=== PATIENT | female | born 1940 | race Caucasian/White ===

== ENCOUNTER 2019-07-04 11:04 | Inpatient (IN) | payer MEDICARE, BC ==
[2019-07-04] MEDS ORDERED: SODIUM CHLORIDE 0.9% 1,000 ML IV STA (11:23)
[2019-07-04] MEDS ORDERED: DILTIAZEM DRIP BOLUS FROM BAG 1 MG SOLN IV ONE (11:23)
[2019-07-04] MEDS: DILTIAZEM 125 MG in SODIUM CHLORIDE 0.9% 100 ML IV SCH (11:43)
--- NOTE | 2019-07-04 11:47 | ED ---
General Adult HPI - General Chief complaint: Arrhythmia/Palpitations Stated complaint: High BP Time Seen by Provider: 07/04/19 11:16 Source: patient, RN notes reviewed, old records reviewed Mode of arrival: ambulatory Limitations: no limitations - History of Present Illness Initial comments: 78-year-old female presenting for evaluation of palpitations, , diarrhea, and poor appetite. No nausea vomiting. No chest pain. No dyspnea. No fever. She states her symptoms began last night. Should 2 episodes of diarrhea. She has history of CAD, no history of arrhythmia. She is currently on aspirin and Plavix. No history of illicit drug use, she states she did not eat or drink well yesterday because she was not feeling well. - Related Data Allergies Allergy/AdvReac Type Severity Reaction Status Date / Time acetaminophen [From Percocet] Allergy tremors Verified 07/04/19 11:12 ampicillin Allergy Unknown Verified 07/04/19 11:12 Childhood oxycodone [From Percocet] Allergy tremors Verified 07/04/19 11:12 Penicillins Allergy Unknown Verified 07/04/19 11:12 Childhood indomethacin [From Indocin] AdvReac Nausea Verified 07/04/19 11:12 isosorbide [From Imdur] AdvReac Nausea Verified 07/04/19 11:12 NSAIDS (Non-Steroidal AdvReac Nausea Verified 07/04/19 11:12 Anti-Inflamma omeprazole [From Prilosec] AdvReac Abdominal Verified 07/04/19 11:12 Pain ticlopidine [From Ticlid] AdvReac Nausea Verified 07/04/19 11:12 Review of Systems ROS Statement: Those systems with pertinent positive or pertinent negative responses have been documented in the HPI. ROS Other: All systems not noted in ROS Statement are negative. Past Medical History Past Medical History: Chest Pain / Angina, Hyperlipidemia, Myocardial Infarction ([place]) History of Any Multi-Drug Resistant Organisms: None Reported Past Surgical History: Cholecystectomy, Heart Catheterization With Stent, Hysterectomy Additional Past Surgical History / Comment(s): cystocele, rectocele, bladder suspension, urtheral vag sling, anterior/posterior colporhaphy, rt total knee Past Psychological History: No Psychological Hx Reported Smoking Status: Never smoker Past Alcohol Use History: None Reported Past Drug Use History: None Reported General Exam Limitations: no limitations General appearance: alert, in no apparent distress Head exam: Present: atraumatic, normocephalic Eye exam: Present: normal appearance, PERRL ENT exam: Present: mucous membranes dry Neck exam: Present: normal inspection. Absent: tenderness, meningismus Respiratory exam: Present: normal lung sounds bilaterally. Absent: respiratory distress, wheezes Cardiovascular Exam: Present: normal rhythm, tachycardia GI/Abdominal exam: Present: soft. Absent: distended, tenderness, guarding Extremities exam: Present: normal inspection, normal capillary refill. Absent: pedal edema, calf tenderness Back exam: Present: normal inspection, full ROM Neurological exam: Present: alert, oriented X3, CN II-XII intact. Absent: motor sensory deficit Psychiatric exam: Present: normal affect, normal mood Skin exam: Present: warm, dry, intact. 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 fib with RVR rate in the 150s. Initially appears to be a flutter with 21 AV conduction. Rate is significantly improved in the emergency department with Cardizem. She has a [id number] sclera 4, she is started on heparin. She has stable hemoglobin is 16, mild leukocytosis 12.2, normal electrolytes, initial troponin 0.034. Chest x-ray negative for acute cardiopulmonary disease. She will be admitted to internal medicine with cardiology on consult. - Lab Data Result diagrams: 07/04/19 11:30 07/04/19 11:30 Lab Results 07/04/19 07/04/19 07/04/19 Range/Units 11:20 11:20 11:30 WBC 12.2 H (3.8-10.6) k/uL RBC 5.30 (3.80-5.40) m/uL Hgb 16.0 (11.4-16.0) gm/dL Hct 49.4 H (34.0-46.0) % MCV 93.3 (80.0-100.0) fL MCH 30.3 (25.0-35.0) pg MCHC 32.5 (31.0-37.0) g/dL RDW 12.7 (11.5-15.5) % Plt Count 305 (150-450) k/uL Neutrophils % 80 % Lymphocytes % 13 % Monocytes % 5 % Eosinophils % 0 % Basophils % 0 % Neutrophils # 9.8 H (1.3-7.7) k/uL Lymphocytes # 1.6 (1.0-4.8) k/uL Monocytes # 0.6 (0-1.0) k/uL Eosinophils # 0.0 (0-0.7) k/uL Basophils # 0.1 (0-0.2) k/uL PT (9.0-12.0) sec INR (<1.2) APTT (22.0-30.0) sec Sodium (137-145) mmol/L Potassium (3.5-5.1) mmol/L Chloride (98-107) mmol/L Carbon Dioxide (22-30) mmol/L Anion Gap mmol/L BUN (7-17) mg/dL Creatinine (0.52-1.04) mg/dL Est GFR (CKD-EPI)AfAm (>60 ml/min/1.73 sqM) Est GFR (CKD-EPI)NonAf (>60 ml/min/1.73 sqM) Glucose (74-99) mg/dL Calcium (8.4-10.2) mg/dL Magnesium (1.6-2.3) mg/dL Total Bilirubin (0.2-1.3) mg/dL AST (14-36) U/L ALT (4-34) U/L Alkaline Phosphatase (38-126) U/L Troponin I (0.000-0.034) ng/mL Total Protein (6.3-8.2) g/dL Albumin (3.5-5.0) g/dL TSH (0.465-4.680) mIU/L Urine Color Colorless Urine Appearance Clear (Clear) Urine pH 6.5 (5.0-8.0) Ur Specific Brandon 1.004 (1.001-1.035) Urine Protein Negative (Negative) Urine Glucose (UA) Negative (Negative) Urine Ketones Negative (Negative) Urine Blood Negative (Negative) Urine Nitrite Negative (Negative) Urine Bilirubin Negative (Negative) Urine Urobilinogen <2.0 (<2.0) mg/dL Ur Leukocyte Esterase Negative (Negative) Coronavirus (PCR) Not Detected (Not Detectd) 07/04/19 07/04/19 07/04/19 Range/Units 11:30 11:30 11:30 WBC (3.8-10.6) k/uL RBC (3.80-5.40) m/uL Hgb (11.4-16.0) gm/dL Hct (34.0-46.0) % MCV (80.0-100.0) fL MCH (25.0-35.0) pg MCHC (31.0-37.0) g/dL RDW (11.5-15.5) % Plt Count (150-450) k/uL Neutrophils % % Lymphocytes % % Monocytes % % Eosinophils % % Basophils % % Neutrophils # (1.3-7.7) k/uL Lymphocytes # (1.0-4.8) k/uL Monocytes # (0-1.0) k/uL Eosinophils # (0-0.7) k/uL Basophils # (0-0.2) k/uL PT 10.3 (9.0-12.0) sec INR 1.0 (<1.2) APTT 24.0 (22.0-30.0) sec Sodium 139 (137-145) mmol/L Potassium 4.5 (3.5-5.1) mmol/L Chloride 108 H (98-107) mmol/L Carbon Dioxide 20 L (22-30) mmol/L Anion Gap 11 mmol/L BUN 17 (7-17) mg/dL Creatinine 1.02 (0.52-1.04) mg/dL Est GFR (CKD-EPI)AfAm 61 (>60 ml/min/1.73 sqM) Est GFR (CKD-EPI)NonAf 53 (>60 ml/min/1.73 sqM) Glucose 138 H (74-99) mg/dL Calcium 9.9 (8.4-10.2) mg/dL Magnesium 2.0 (1.6-2.3) mg/dL Total Bilirubin 1.1 (0.2-1.3) mg/dL AST 37 H (14-36) U/L ALT 32 (4-34) U/L Alkaline Phosphatase 102 (38-126) U/L Troponin I 0.034 (0.000-0.034) ng/mL Total Protein 8.0 (6.3-8.2) g/dL Albumin 4.6 (3.5-5.0) g/dL TSH 1.150 (0.465-4.680) mIU/L Urine Color Urine Appearance (Clear) Urine pH (5.0-8.0) Ur Specific Brandon (1.001-1.035) Urine Protein (Negative) Urine Glucose (UA) (Negative) Urine Ketones (Negative) Urine Blood (Negative) Urine Nitrite (Negative) Urine Bilirubin (Negative) Urine Urobilinogen (<2.0) mg/dL Ur Leukocyte Esterase (Negative) Coronavirus (PCR) (Not Detectd) Critical Care Time Critical Care Time: Yes Total Critical Care Time: 35 Disposition Clinical Impression: New onset atrial fibrillation, Atrial fibrillation with RVR Disposition: ADMITTED IP TO THIS [facility] Condition: Stable Is patient prescribed a controlled substance at d/c from ED?: No Referrals: Marcy Farias MD [Primary Care Provider] - 1-2 days Decision to Admit Reason: Admit from EC Decision Date: 07/04/19 Decision Time: 13:08
[2019-07-04 11:48] LABS: Basophils # (A) 0.1 k/uL (0-0.2); Basophils % (A) 0 %; Eosinophils % (A) 0 %; HCT 49.4 % (34.0-46.0); Lymphocytes # (A) 1.6 k/uL (1.0-4.8); Lymphocytes % (A) 13 %; MCH 30.3 pg (25.0-35.0); MCHC 32.5 g/dL (31.0-37.0); MCV 93.3 fL (80.0-100.0); Mean Platelet Volume 8.9; Monocytes # (A) 0.6 k/uL (0-1.0); Monocytes % (A) 5 %; Neutrophils # (A) 9.8 k/uL (1.3-7.7); Neutrophils % (A) 80 %; Platelet Count 305 k/uL (150-450); RDW 12.7 % (11.5-15.5); WBC 12.2 k/uL (3.8-10.6)
[2019-07-04 11:52] LABS: Albumin 4.6 g/dL (3.5-5.0); Calcium 9.9 mg/dL (8.4-10.2); Potassium 4.5 mmol/L (3.5-5.1); Total Bilirubin 1.1 mg/dL (0.2-1.3)
[2019-07-04 11:55] LABS: Prothrombin Time 10.3 sec (9.0-12.0)
--- NOTE | 2019-07-04 11:58 | XR ---
EXAMINATION TYPE: XR chest 2V DATE OF EXAM: 07/04/2019 COMPARISON: None HISTORY: 78-year-old female dysrhythmia, chest pressure TECHNIQUE: PA and lateral views FINDINGS: The heart is normal size. At this regard calcifications. Biapical pleural-parenchymal scarring. Mild interstitial prominence of the chronic appearance. No consolidation or pleural effusion seen. IMPRESSION: Chronic appearing changes. No definite acute process.
[2019-07-04] MEDS ORDERED: HEPARIN SODIUM,PORCINE 5,000 UNIT/ML 1 ML VIAL IV PRN (12:10)
[2019-07-04] MEDS ORDERED: HEPARIN SODIUM,PORCINE 5,000 UNIT/ML 1 ML VIAL IV ONE (12:10)
[2019-07-04] MEDS ORDERED: HEPARIN SOD,PORK IN 0.45% NACL 25,000 UNIT in 0.45% NACL 1 250ML.BAG IV SCH (12:15)
[2019-07-04 12:40] LABS: Appearance,Urine Clear (Clear); Bilirubin,Urine Negative (Negative); Blood,Urine Negative (Negative); Color,Urine Colorless; Glucose,Urine (UA) Negative (Negative); Ketones,Urine Negative (Negative); Leukocyte Esterase,Urine Negative (Negative); Nitrite,Urine Negative (Negative); PH, Urine 6.5 (5.0-8.0); Protein,Urine Negative (Negative); Specific Gravity,Urine 1.004 (1.001-1.035); Urobilinogen,Urine <2.0 mg/dL (<2.0)
[2019-07-04] MEDS ORDERED: ASPIRIN 325 MG TAB PO STA (13:02)
[2019-07-04] MEDS ORDERED: NALOXONE 0.4 MG/ML 1 ML VIAL IV PRN ×2 (13:03→14:22)
[2019-07-04] MEDS: SODIUM CHLORIDE 0.9% 1,000 ML IV SCH (13:43)
--- NOTE | 2019-07-04 14:30 | P.HPIM ---
History of Present Illness H&P Date: 07/04/19 Chief Complaint: Palpitations 78-year-old female presenting for evaluation of palpitations, lethargy , as well as diarrhea and poor appetite. No nausea vomiting. No chest pain. No dyspnea. She states her symptoms began last night. Had 2 episodes of diarrhea yesterday and 1 today. She has history of CAD, has 5 stents. She is currently on aspirin and Plavix. No fevers or chills, no cough, no sick contacts. In the emergency department she was found to have atrial fibrillation with rapid ventricular response, she was started on heparin and diltiazem drip and was admitted to the hospital for further evaluation and management. Review of Systems Complete review of system performed, pertinent positives per HPI, otherwise negative Past Medical History Past Medical History: Chest Pain / Angina, Hyperlipidemia, Myocardial Infarction ([place]) History of Any Multi-Drug Resistant Organisms: None Reported Past Surgical History: Cholecystectomy, Heart Catheterization With Stent, Hysterectomy Additional Past Surgical History / Comment(s): cystocele, rectocele, bladder suspension, urtheral vag sling, anterior/posterior colporhaphy, rt total knee Past Psychological History: No Psychological Hx Reported Smoking Status: Never smoker Past Alcohol Use History: None Reported Past Drug Use History: None Reported Medications and Allergies Home Medications Medication Instructions Recorded Confirmed Type Acetaminophen/Diphenhydramine 1 tab PO HS 07/04/19 07/04/19 History [Tylenol PM 500-25mg] Aspirin [Adult Low Dose Aspirin EC] 81 mg PO DAILY 07/04/19 07/04/19 History Atorvastatin Calcium [Lipitor] 40 mg PO HS 07/04/19 07/04/19 History Clopidogrel [Plavix] 75 mg PO HS 07/04/19 07/04/19 History Diltiazem HCl [Diltiazem HCl 24Hr 240 mg PO DAILY 07/04/19 07/04/19 History ER (CD)] Docusate [Colace] 100 mg PO BID 07/04/19 07/04/19 History Enalapril Maleate [Vasotec] 20 mg PO BID 07/04/19 07/04/19 History Allergies Allergy/AdvReac Type Severity Reaction Status Date / Time ampicillin Allergy Unknown Verified 07/04/19 13:21 Childhood oxycodone [From Percocet] Allergy tremors Verified 07/04/19 13:21 Penicillins Allergy Unknown Verified 07/04/19 13:21 Childhood indomethacin [From Indocin] AdvReac Nausea Verified 07/04/19 13:21 isosorbide [From Imdur] AdvReac Nausea Verified 07/04/19 13:21 NSAIDS (Non-Steroidal AdvReac Nausea Verified 07/04/19 13:21 Anti-Inflamma omeprazole [From Prilosec] AdvReac Abdominal Verified 07/04/19 13:21 Pain ticlopidine [From Ticlid] AdvReac Nausea Verified 07/04/19 13:21 Physical Exam Vitals: Vital Signs Temp Pulse Pulse Resp BP Pulse Ox 07/04/19 11:30 115 H 18 153/112 97 07/04/19 11:25 152 H 07/04/19 11:19 154 H 21 07/04/19 11:04 98.5 F 156 H 18 127/77 97 Intake and Output 07/03/19 07/04/19 07/04/19 22:59 06:59 14:59 Other: Weight 87.543 kg Constitutional: No acute distress, conversant, pleasant Eyes:Anicteric sclerae, moist conjunctiva, no lid-lag, PERRLA, ENMT: Oropharynx clear, no erythema, exudates Neck: Supple, FROM, no masses, or JVD, No carotid bruits, No thyromegaly Lungs: Clear to auscultation, Clear to percussion, Normal respiratory effort, no accessory muscle use Cardiovascular: Tachycardic, irregularly irregular no murmurs, gallops, or rubs, No peripheral edema Abdominal: Soft, Nontender, no guarding, rebound or rigidity, Normoactive bowel sounds, No hepatomegaly, No splenomegaly, No palpable mass Skin: Normal temperature, tone, texture, turgor, no induration, No subcutaneous nodules, No rash, lesions, No ulcers Extremities: No digital cyanosis, No clubbing, Pedal pulses intact and symmetrical, Radial pulses intact and symmetrical, No calf tenderness Psychiatric: Alert and oriented to person, place and time, appropriate affect, intact judgement Neuro: Muscles Strength 5/5 in all 4 extremities, Sensation to light touch grossly present throughout, Cranial nerves II-XII grossly intact, no focal sensory deficits Results CBC & Chem 7: 07/04/19 11:30 07/04/19 11:30 Labs: Abnormal Lab Results - Last 24 Hours (Table) 07/04/19 07/04/19 Range/Units 11:30 11:30 WBC 12.2 H (3.8-10.6) k/uL Hct 49.4 H (34.0-46.0) % Neutrophils # 9.8 H (1.3-7.7) k/uL Chloride 108 H (98-107) mmol/L Carbon Dioxide 20 L (22-30) mmol/L Glucose 138 H (74-99) mg/dL AST 37 H (14-36) U/L Assessment and Plan Plan: New-onset atrial fibrillation Started on heparin drip and diltiazem drip in the emergency department Cardio consultation Monitor on telemetry Echo Currently hemodynamically stable History of coronary artery disease Cycle troponins Currently stable Resume aspirin and Plavix as well as beta mera Chronic Hyperlipidemia Stable resume statin Patient admitted to inpatient, expected length of stay more than 2 midnights
[2019-07-04] MEDS: CLOPIDOGREL 75 MG TAB PO SCH (22:01)
[2019-07-04] MEDS: LISINOPRIL 20 MG TAB PO SCH (22:01)
[2019-07-04] MEDS: ATORVASTATIN 40 MG TAB PO SCH (22:01)
[2019-07-05 06:53] LABS: Basophils # (A) 0.1 k/uL (0-0.2); Basophils % (A) 1 %; Eosinophils # (A) 0.1 k/uL (0-0.7); Eosinophils % (A) 1 %; HCT 46.4 % (34.0-46.0); HGB 14.8 gm/dL (11.4-16.0); Lymphocytes # (A) 2.1 k/uL (1.0-4.8); Lymphocytes % (A) 19 %; MCH 30.1 pg (25.0-35.0); MCV 94.3 fL (80.0-100.0); Mean Platelet Volume 8.8; Monocytes # (A) 0.7 k/uL (0-1.0); Monocytes % (A) 7 %; Neutrophils # (A) 7.7 k/uL (1.3-7.7); Neutrophils % (A) 71 %; Platelet Count 258 k/uL (150-450); RBC 4.92 m/uL (3.80-5.40); RDW 12.8 % (11.5-15.5); WBC 10.8 k/uL (3.8-10.6)
[2019-07-05 07:20] LABS: Albumin 3.9 g/dL (3.5-5.0); Calcium 8.9 mg/dL (8.4-10.2); Potassium 4.1 mmol/L (3.5-5.1); Total Bilirubin 0.8 mg/dL (0.2-1.3); Total Protein 7.1 g/dL (6.3-8.2)
--- NOTE | 2019-07-05 07:36 | CDI ---
Documentation Clarification Form Date: 07/05/2019 07:34:21 AM From: Margi Dominguez RN, CCDS Admit Date: 07/04/2019 01:03:00 PM Patient Name: Lori Reynoso Visit Number: [id number] ATTENTION: The Clinical Documentation Specialists (CDI) and [facility] Coding Staff appreciate your assistance in clarifying documentation. Please respond to the clarification below the line at the bottom and electronically sign. The CDI & [facility] Coding staff will review the response and follow-up if needed. Please note: Queries are made part of the Legal Health Record. If you have any questions, please contact the author of this message via ITS. Dr. Karel Gage Coronavirus status must be documented on all patients tested. Please review and provide documentation. Patient history/risk factors: CAD, [place] Clinical Indicators: CXR: "Chronic appearing changes. No definite acute process." 07/03 Coronavirus (PCR) negative 07/03-07/04 Labs: WBC 12.2/10.8 07/04/2019 1104 Vital Signs: temp 98.5, HR 156, RR 18, B/P 127/77, Spo2 97% RA Treatment: 1 L IVF 0.9%NS bolus In order to capture the severity of condition, please clarify if the above treatment/clinical indicators signify: COVID-19 ruled out Other, please specify (Last Form Revision: May 2019) COVID-19 ruled out MTDD
[2019-07-05] MEDS: LISINOPRIL 20 MG TAB PO SCH (08:14)
[2019-07-05] MEDS ORDERED: ASPIRIN 81 MG PO SCH (09:00)
--- NOTE | 2019-07-05 09:57 | ECHOF ---
Referral Reason:Atrial fibrillation MEASUREMENTS -------- HEIGHT: 165.1 cm WEIGHT: 86.2 kg BP: 134/75 RVIDd: 2.6 cm (< 3.3) IVSd: 1.1 cm (0.6 - 1.1) LVIDd: 4.0 cm (3.9 - 5.3) LVPWd: 1.1 cm (0.6 - 1.1) IVSs: 1.5 cm LVIDs: 2.7 cm LVPWs: 1.3 cm LA Diam: 3.1 cm (2.7 - 3.8) LAESV Index (A-L): 22.70 ml/m Ao Diam: 3.1 cm (2.0 - 3.7) AV Cusp: 1.9 cm (1.5 - 2.6) MV EXCURSION: 10.022 mm (> 18.000) MV EF SLOPE: 32 mm/s (70 - 150) EPSS: 0.7 cm MV E Trav: 1.32 m/s MV DecT: 166 ms MV A Trav: 0.55 m/s MV E/A Ratio: 2.39 FINDINGS -------- Sinus rhythm. This was a technically good study. The left ventricular size is normal. There is borderline concentric left ventricular hypertrophy. Overall left ventricular systolic function is normal with, an EF between 60 - 65 %. The right ventricle is normal in size. Normal LA size by volume 22+/-6 ml/m2. The right atrium is normal in size. Interatrial and interventricular septum intact. The aortic valve is trileaflet and appears structurally normal. Mild mitral annular calcification present. The tricuspid valve appears structurally normal. Trace/mild (physiologic) pulmonic regurgitation. The aortic root size is normal. Normal inferior vena cava with normal inspiratory collapse consistent with estimated right atrial pre ssure of 5 mmHg. There is no pericardial effusion. CONCLUSIONS -------- 1. Sinus rhythm. 2. This was a technically good study. 3. The left ventricular size is normal. 4. There is borderline concentric left ventricular hypertrophy. 5. Overall left ventricular systolic function is normal with, an EF between 60 - 65 %. 6. The right ventricle is normal in size. 7. Normal LA size by volume 22+/-6 ml/m2. 8. The right atrium is normal in size. 9. Interatrial and interventricular septum intact. 10. The aortic valve is trileaflet and appears structurally normal. 11. Mild mitral annular calcification present. 12. The tricuspid valve appears structurally normal. 13. Trace/mild (physiologic) pulmonic regurgitation. 14. The aortic root size is normal. 15. Normal inferior vena cava with normal inspiratory collapse consistent with estimated right atrial pressure of 5 mmHg. 16. There is no pericardial effusion. [employer]TER [employer]AGGAGE: Shasha Ruiz RDCS
--- NOTE | 2019-07-05 10:26 | P.CRDCN ---
History of Present Illness Consult date: 07/05/19 Requesting physician: Franky Fowler Chief complaint: Shortness of breath, palpitation History of present illness: This is a pleasant 78-year-old female with history of coronary artery disease and prior stent placements, the most recent stent was apparently performed approximately 5 years ago. 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 She has history also of hyperlipidemia, hypertension. She presented to the emergency room on this occasion with symptoms of moderate to severe shortness of breath, palpitations, diarrhea and exhaustion. Her chest x- ray on presentation here did not reveal any acute changes EKG showed what appeared to be in atrial flutter with a rapid ventricular response. This could also be an atrial tachycardia. Blood pressure 155/60 with a heart rate in the 80s this morning, it appears that the patient continues to be in atrial flutter, respirations 18, temperature 98.4, 98% on room air. White blood cell count 12.2, hemoglobin 16, lately count 305. Sodium 139, potassium 4.5, chloride 108, CO2 20, BUN 17 creatinine 1.0, magnesium 2.0. Troponin 0.034, 0.044, 0.055. TSH normal at 1.1, yancey virus not detected. Dr. Smalls did have a lengthy discussion with the patient about the need for anticoagulation for stroke prevention, he discussed possible ablation. Procedure down the road, and the importance of heart rate control. The patient does think that she was tried on one of the newer anticoagulants in the past but did not have appropriate financial coverage for that. We will however check to see if she has coverage for Eliquis is so we will initiate this. If the patient does not have coverage we will anticoagulate with Coumadin. We will discontinue her aspirin, continue with her Plavix, check an echocardiogram, check a TSH level. We will put the patient on 240 mg of Cardizem in the morning and 120 in the evening, discontinue the IV Cardizem drip in the evening. We will also decrease her lisinopril to 40 mg daily. Past Medical History Past Medical History: Chest Pain / Angina, Hyperlipidemia, Myocardial Infarction ([place]) Additional Past Medical History / Comment(s): chest pressure not p ain Last Myocardial Infarction Date:: 2013 History of Any Multi-Drug Resistant Organisms: None Reported Past Surgical History: Cholecystectomy, Heart Catheterization With Stent, Hysterectomy Additional Past Surgical History / Comment(s): cystocele, rectocele, bladder suspension, urtheral vag sling, anterior/posterior colporhaphy, rt total knee, 5 stents. Date of Last Stent Placement:: 2013 Past Psychological History: No Psychological Hx Reported Smoking Status: Never smoker Past Alcohol Use History: None Reported Past Drug Use History: None Reported - Past Family History Father Family Medical History: Congestive Heart Failure (CHF), Coronary Artery Disease (CAD), Hyperlipidemia, Myocardial Infarction ([place]) Mother Family Medical History: Hypertension, Renal Disease Medications and Allergies Home Medications Medication Instructions Recorded Confirmed Type Acetaminophen/Diphenhydramine 1 tab PO HS 07/04/19 07/04/19 History [Tylenol PM 500-25mg] Aspirin [Adult Low Dose Aspirin EC] 81 mg PO DAILY 07/04/19 07/04/19 History Atorvastatin Calcium [Lipitor] 40 mg PO HS 07/04/19 07/04/19 History Clopidogrel [Plavix] 75 mg PO HS 07/04/19 07/04/19 History Diltiazem HCl [Diltiazem HCl 24Hr 240 mg PO DAILY 07/04/19 07/04/19 History ER (CD)] Docusate [Colace] 100 mg PO BID 07/04/19 07/04/19 History Enalapril Maleate [Vasotec] 20 mg PO BID 07/04/19 07/04/19 History Allergies Allergy/AdvReac Type Severity Reaction Status Date / Time ampicillin Allergy Unknown Verified 07/04/19 13:21 Childhood oxycodone [From Percocet] Allergy tremors Verified 07/04/19 13:21 Penicillins Allergy Unknown Verified 07/04/19 13:21 Childhood indomethacin [From Indocin] AdvReac Nausea Verified 07/04/19 13:21 isosorbide [From Imdur] AdvReac Nausea Verified 07/04/19 13:21 NSAIDS (Non-Steroidal AdvReac Nausea Verified 07/04/19 13:21 Anti-Inflamma omeprazole [From Prilosec] AdvReac Abdominal Verified 07/04/19 13:21 Pain ticlopidine [From Ticlid] AdvReac Nausea Verified 07/04/19 13:21 Physical Exam Vitals: Vital Signs Temp Pulse Pulse Resp BP BP Pulse Ox 07/05/19 08:00 98.4 F 88 18 155/68 98 07/05/19 07:48 83 07/05/19 03:12 83 17 07/05/19 03:10 98.2 F 83 17 134/75 96 07/05/19 00:00 79 16 07/04/19 23:55 98.4 F 79 16 151/81 96 07/04/19 21:58 16 07/04/19 21:39 98.5 F 78 16 151/82 98 07/04/19 17:20 98.6 F 99 18 147/79 98 07/04/19 16:51 98.2 F 84 16 139/55 98 07/04/19 16:28 99 17 147/79 07/04/19 15:00 76 17 134/69 98 07/04/19 14:30 77 17 148/66 97 07/04/19 14:00 111 H 16 143/68 97 07/04/19 13:42 93 18 130/83 98 07/04/19 13:30 110 H 17 97 07/04/19 13:00 109 H 17 151/83 97 07/04/19 12:30 101 H 17 159/94 96 07/04/19 12:00 112 H 17 144/101 98 07/04/19 11:30 115 H 18 153/112 97 07/04/19 11:25 152 H 07/04/19 11:19 154 H 21 07/04/19 11:04 98.5 F 156 H 18 127/77 97 Intake and Output 07/04/19 07/05/19 07/05/19 22:59 06:59 14:59 Intake Total 63.04 80 250.405 Output Total 250 Balance 63.04 -170 250.405 Intake: Intake, IV Titration 63.04 80 130.405 Amount Heparin Sod,Pork in 0.45% 63.04 130.405 NaCl 25,000 unit In 0.45 % NaCl 1 250ml.bag @ 11.4 UNITS/KG/HR 9.98 mls/hr IV .Q24H [facility]O Rx#: [id number] Sodium Chloride 0.9% 1, 80 000 ml @ 20 mls/hr IV . Q24H EDGARDO Rx#:[id number] Oral 120 Output: Urine 250 Other: Voiding Method Toilet Toilet # Voids 1 Weight 87.543 kg 86.3 kg PHYSICAL EXAMINATION: GENERAL: 78-year-old female in no acute distress at the time of my examination HEENT: Head is atraumatic, normocephalic. Pupils equal, round. Sclera anicteric. Conjunctiva are clear. Mucous membranes of the mouth are moist. Neck is supple. There is no elevated jugular venous pressure. No carotid bruit is heard. HEART EXAMINATION: Heart S1-S2 irregularly irregular , no murmur or gallop heard CHEST EXAMINATION: Lungs are clear to auscultation and precussion. No chest wall tenderness is noted on palpation or with deep breathing. ABDOMEN: Soft, nontender. Bowel sounds are heard. No organomegaly noted. EXTREMITIES: 2+ peripheral pulses with no evidence of peripheral edema and no calf tenderness noted. NEUROLOGIC patient is awake, alert and oriented 3 . . Results 07/05/19 06:38 07/05/19 06:38 Cardiac Enzymes 07/04/19 07/04/19 07/04/19 Range/Units 11:30 11:30 18:11 AST 37 H (14-36) U/L Troponin I 0.034 0.044 H* (0.000-0.034) ng/mL 07/04/19 07/05/19 Range/Units 23:39 06:38 AST 31 (14-36) U/L Troponin I 0.055 H* (0.000-0.034) ng/mL Coagulation 07/04/19 07/04/19 07/05/19 Range/Units 11:30 18:11 06:38 PT 10.3 (9.0-12.0) sec APTT 24.0 55.3 H 33.4 H (22.0-30.0) sec CBC 07/04/19 07/05/19 Range/Units 11:30 06:38 WBC 12.2 H 10.8 H (3.8-10.6) k/uL RBC 5.30 4.92 (3.80-5.40) m/uL Hgb 16.0 14.8 (11.4-16.0) gm/dL Hct 49.4 H 46.4 H (34.0-46.0) % Plt Count 305 258 (150-450) k/uL Comprehensive Metabolic Panel 07/04/19 07/05/19 Range/Units 11:30 06:38 Sodium 139 139 (137-145) mmol/L Potassium 4.5 4.1 (3.5-5.1) mmol/L Chloride 108 H 109 H (98-107) mmol/L Carbon Dioxide 20 L 23 (22-30) mmol/L BUN 17 15 (7-17) mg/dL Creatinine 1.02 0.83 (0.52-1.04) mg/dL Glucose 138 H 118 H (74-99) mg/dL Calcium 9.9 8.9 (8.4-10.2) mg/dL AST 37 H 31 (14-36) U/L ALT 32 26 (4-34) U/L Alkaline Phosphatase 102 89 (38-126) U/L Total Protein 8.0 7.1 (6.3-8.2) g/dL Albumin 4.6 3.9 (3.5-5.0) g/dL Current Medications Generic Name Dose Route Start Last Admin Trade Name Freq PRN Reason Stop Dose Admin Atorvastatin Calcium 40 mg 07/04/19 21:00 07/04/19 22:01 Lipitor PO 40 mg HS EDGARDO Administration Clopidogrel Bisulfate 75 mg 07/04/19 21:00 07/04/19 22:01 Plavix PO 75 mg HS EDGARDO Administration Diltiazem HCl 240 mg 07/05/19 10:30 Cardizem Cd PO DAILY EDGARDO Diltiazem HCl 120 mg 07/05/19 20:00 Cardizem Cd PO DAILY EDGADRO Heparin Sodium (Porcine) 0 unit 07/04/19 12:10 Heparin IV PER PROTOCOL PRN Low PTT Protocol Diltiazem HCl 125 mg/ Sodium 125 mls @ 5 mls/hr 07/04/19 11:30 07/04/19 11:43 Chloride IV 07/05/19 20:00 5 mg/hr .Q24H EDGARDO 5 mls/hr Administration 5 MG/HR Heparin Sodium/Sodium Chloride 250 mls @ 9.98 mls/hr 07/04/19 12:15 07/05/19 08:18 25,000 unit/ Sodium Chloride IV 14.4 units/kg/hr .Q24H EDGARDO 12.606 mls/hr Titration Protocol 11.4 UNITS/KG/HR Sodium Chloride 1,000 mls @ 20 mls/hr 07/04/19 13:15 07/04/19 13:43 Saline 0.9% IV 20 mls/hr .Q24H EDGARDO Administration Lisinopril 40 mg 07/04/19 21:00 07/05/19 08:14 Zestril PO 40 mg BID EDGARDO Administration Naloxone HCl 0.2 mg 07/04/19 14:22 Narcan IV Q2M PRN Opioid Reversal Intake and Output 07/04/19 07/05/19 07/05/19 22:59 06:59 14:59 Intake Total 63.04 80 250.405 Output Total 250 Balance 63.04 -170 250.405 Intake: Intake, IV Titration 63.04 80 130.405 Amount Heparin Sod,Pork in 0.45% 63.04 130.405 NaCl 25,000 unit In 0.45 % NaCl 1 250ml.bag @ 11.4 UNITS/KG/HR 9.98 mls/hr IV .Q24H [facility]GARDO Rx#: [id number] Sodium Chloride 0.9% 1, 80 000 ml @ 20 mls/hr IV . Q24H [facility]O Rx#:[id number] Oral 120 Output: Urine 250 Other: Voiding Method Toilet Toilet # Voids 1 Weight 87.543 kg 86.3 kg 07/05/19 06:38 07/05/19 06:38 EKG Interpretations (text) EKG shows atrial flutter with a rapid ventricular response Assessment and Plan Plan: Assessment and plan #1 atrial flutter with rapid ventricular response, could also be an atrial tachycardia. #2 coronary artery disease history with prior stent placements, exact details unavailable. Most recent stent was 5 years ago. #3 hypertension #4 hyperlipidemia Plan We will discontinue the aspirin, continue Plavix, if the patient is covered we will start her on Eliquis 5 mg one tablet by mouth twice a day, if the patient does not have sufficient coverage we will initiate Coumadin from today. Check an echocardiogram with Doppler study as well as a TSH level. We will put the patient on 240 mg of Cardizem in the morning and 120 mg in the evening, d iscontinue the IV Cardizem drip in the evening. Decrease lisinopril to [address] Smalls also had a discussion with the patient regarding possible ablation procedure, and he discussed the importance of adequate rate control. Further recommendations to follow. DNP note has been reviewed, I agree with a documented findings and plan of care. Patient was seen and examined.
[2019-07-05] MEDS ORDERED: APIXABAN 5 MG TAB PO SCH (10:45)
[2019-07-05] MEDS: SODIUM CHLORIDE 0.9% 1,000 ML IV SCH (11:04)
[2019-07-05] MEDS: DILTIAZEM CD 240 MG CAP.ER.24H PO SCH (11:17)
[2019-07-05] MEDS: DILTIAZEM 125 MG in SODIUM CHLORIDE 0.9% 100 ML IV SCH (11:17)
--- NOTE | 2019-07-05 13:18 | P.PN ---
Subjective Progress Note Date: 07/05/19 Principal diagnosis: A-fib Patient is feeling better today. She was able to get up out of bed without significant weakness this morning. No significant shortness of breath or chest pain. Objective - Vital Signs Vital signs: Vital Signs Temp 98.4 F 07/05/19 08:00 Pulse 88 07/05/19 08:00 Resp 18 07/05/19 08:00 BP 155/68 07/05/19 08:00 Pulse Ox 98 07/05/19 08:00 Intake & Output 07/04/19 07/05/19 07/05/19 18:59 06:59 18:59 Intake Total 143.04 250.405 Output Total 250 Balance -106.96 250.405 Weight 87.543 kg 86.3 kg Intake: Intake, IV Titration 143.04 130.405 Amount Heparin Sod,Pork in 0.45% 63.04 130.405 NaCl 25,000 unit In 0.45 % NaCl 1 250ml.bag @ 11.4 UNITS/KG/HR 9.98 mls/hr IV .Q24H [facility]GARDO Rx#: [id number] Sodium Chloride 0.9% 1, 80 000 ml @ 20 mls/hr IV . Q24H EDGARDO Rx#:[id number] Oral 120 Output: Urine 250 Other: Voiding Method Toilet # Voids 1 - Exam Constitutional: No acute distress, conversant, pleasant Eyes:Anicteric sclerae, moist conjunctiva, no lid-lag, PERRLA, ENMT: Oropharynx clear, no erythema, exudates Neck: Supple, FROM, no masses, or JVD, No carotid bruits, No thyromegaly Lungs: Clear to auscultation, Clear to percussion, Normal respiratory effort, no accessory muscle use Cardiovascular: normal rate, irregularly irregular no murmurs, gallops, or rubs, No peripheral edema Abdominal: Soft, Nontender, no guarding, rebound or rigidity, Normoactive bowel sounds, No hepatomegaly, No splenomegaly, No palpable mass Skin: Normal temperature, tone, texture, turgor, no induration, No subcutaneous nodules, No rash, lesions, No ulcers Extremities: No digital cyanosis, No clubbing, Pedal pulses intact and symmetrical, Radial pulses intact and symmetrical, No calf tenderness Psychiatric: Alert and oriented to person, place and time, appropriate affect, intact judgement Neuro: Muscles Strength 5/5 in all 4 extremities, Sensation to light touch grossly present throughout, Cranial nerves II-XII grossly intact, no focal sensory deficits - Labs CBC & Chem 7: 07/05/19 06:38 07/05/19 06:38 Labs: Abnormal Lab Results - Last 24 Hours (Table) 07/04/19 07/04/19 07/04/19 Range/Units 11:30 11:30 18:11 WBC 12.2 H (3.8-10.6) k/uL Hct 49.4 H (34.0-46.0) % Neutrophils # 9.8 H (1.3-7.7) k/uL APTT 55.3 H (22.0-30.0) sec Chloride 108 H (98-107) mmol/L Carbon Dioxide 20 L (22-30) mmol/L Glucose 138 H (74-99) mg/dL AST 37 H (14-36) U/L Troponin I (0.000-0.034) ng/mL 07/04/19 07/04/19 07/05/19 Range/Units 18:11 23:39 06:38 WBC 10.8 H (3.8-10.6) k/uL Hct 46.4 H (34.0-46.0) % Neutrophils # (1.3-7.7) k/uL APTT (22.0-30.0) sec Chloride (98-107) mmol/L Carbon Dioxide (22-30) mmol/L Glucose (74-99) mg/dL AST (14-36) U/L Troponin I 0.044 H* 0.055 H* (0.000-0.034) ng/mL 07/05/19 07/05/19 Range/Units 06:38 06:38 WBC (3.8-10.6) k/uL Hct (34.0-46.0) % Neutrophils # (1.3-7.7) k/uL APTT 33.4 H (22.0-30.0) sec Chloride 109 H (98-107) mmol/L Carbon Dioxide (22-30) mmol/L Glucose 118 H (74-99) mg/dL AST (14-36) U/L Troponin I (0.000-0.034) ng/mL Assessment and Plan Plan: New-onset atrial fibrillation D/c heparin drip and start coumadin, new AC agents not covered by her insurance, verified by pharmacy. Seen by cardio Cardizem dose adjusted by cardio to 120mg qhs and 240 in am. Check TSH Continue to monitor on telemetry Echo Currently hemodynamically stable History of coronary artery disease Currently stable Resume aspirin and Plavix as well as beta mera Chronic Hyperlipidemia Stable resume statin Patient admitted to inpatient, expected length of stay more than 2 midnights
[2019-07-05] MEDS ORDERED: WARFARIN 2 MG TAB PO SCH (18:00)
[2019-07-05] MEDS ORDERED: DILTIAZEM CD 120 MG CAP.ER.24H PO SCH (20:00)
[2019-07-05] MEDS: ATORVASTATIN 40 MG TAB PO SCH (20:14)
[2019-07-05] MEDS: CLOPIDOGREL 75 MG TAB PO SCH (20:14)
[2019-07-05 22:53] VITALS: RESP 16
[2019-07-06 04:59] VITALS: TEMP 98.1
[2019-07-06 06:36] LABS: Basophils # (A) 0.1 k/uL (0-0.2); Basophils % (A) 1 %; Eosinophils # (A) 0.2 k/uL (0-0.7); Eosinophils % (A) 3 %; HGB 14.8 gm/dL (11.4-16.0); Lymphocytes # (A) 2.2 k/uL (1.0-4.8); Lymphocytes % (A) 26 %; MCH 30.4 pg (25.0-35.0); MCHC 32.1 g/dL (31.0-37.0); MCV 94.6 fL (80.0-100.0); Monocytes # (A) 0.7 k/uL (0-1.0); Monocytes % (A) 8 %; Neutrophils % (A) 61 %; Platelet Count 249 k/uL (150-450); RBC 4.86 m/uL (3.80-5.40); RDW 12.7 % (11.5-15.5); WBC 8.3 k/uL (3.8-10.6)
[2019-07-06] MEDS ORDERED: LISINOPRIL 20 MG TAB PO SCH (09:00)
[2019-07-06] MEDS: DILTIAZEM CD 240 MG CAP.ER.24H PO SCH (09:35)
[2019-07-06 10:23] VITALS: BP 153/80; PULSE 83
[2019-07-06 10:42] LABS: Prothrombin Time 10.3 sec (9.0-12.0)
--- NOTE | 2019-07-06 11:29 | P.DS ---
Providers Date of admission: 07/04/19 13:03 Expected date of discharge: 07/06/19 Attending physician: Franky Fowler MD Consults: 07/04/19 13:03 Consult Physician Routine Consulting Provider: Praneeth Smalls Consult Reason/Comments: New-onset atrial fibrillation with RVR Do you want consulting provider notified?: Yes Primary care physician: Marcy Farias [facility] Course: 78-year-old female presenting for evaluation of palpitations, lethargy , as well as diarrhea and poor appetite. No nausea vomiting. No chest pain. No dyspnea. She states her symptoms began last night. Had 2 episodes of diarrhea yesterday and 1 today. She has history of CAD, has 5 stents. She is currently on aspirin and Plavix. No fevers or chills, no cough, no sick contacts. In the emergency department she was found to have atrial fibrillation with rapid ventricular response, she was started on heparin and diltiazem drip and was admitted to the hospital for further evaluation and management. TSH was within normal limits. During the hospitalization her troponin bumped up slightly to 0.055 which was deemed nonspecific per cardiology. Patient had an echocardiogram that revealed normal ejection fraction. Patient was kept on heparin. She was seen by cardiology who added Cardizem 120 mg evening dose to the 240 mg she already takes in the morning. Her heart rate stabilized, the Cardizem drip was discontinued. Her insurance was not going to cover the newer anticoagulants so patient was started on Coumadin. Due to that aspirin will be dropped and she'll be continued on Plavix. Patient was instructed to follow-up with her primary care physician tomorrow in order to check on her INR. She will also need to follow with cardiology. Time for discharge 35 minutes. Patient Condition at Discharge: Stable Plan - Discharge Summary Discharge Rx Participant: Yes New Discharge Prescriptions: New Apixaban [Eliquis] 5 mg PO BID 30 Days #60 tab Diltiazem Cd [Cardizem CD] 120 mg PO DAILY@1999 90 Days #90 cap.er.24h Warfarin [Coumadin] 3 mg PO DAILY@1800 3 Days #3 tab Continue Docusate [Colace] 100 mg PO BID Acetaminophen/Diphenhydramine [Tylenol PM 500-25mg] 1 tab PO HS Enalapril Maleate [Vasotec] 20 mg PO BID Diltiazem HCl [Diltiazem HCl 24Hr ER (CD)] 240 mg PO DAILY Clopidogrel [Plavix] 75 mg PO HS Atorvastatin Calcium [Lipitor] 40 mg PO HS Discontinued Aspirin [Adult Low Dose Aspirin EC] 81 mg PO DAILY Discharge Medication List Acetaminophen/Diphenhydramine [Tylenol PM 500-25mg] 1 tab PO HS 07/04/19 [History] Atorvastatin Calcium [Lipitor] 40 mg PO HS 07/04/19 [History] Clopidogrel [Plavix] 75 mg PO HS 07/04/19 [History] Diltiazem HCl [Diltiazem HCl 24Hr ER (CD)] 240 mg PO DAILY 07/04/19 [History] Docusate [Colace] 100 mg PO BID 07/04/19 [History] Enalapril Maleate [Vasotec] 20 mg PO BID 07/04/19 [History] Apixaban [Eliquis] 5 mg PO BID 30 Days #60 tab 07/05/19 [Rx] Diltiazem Cd [Cardizem CD] 120 mg PO DAILY@2000 90 Days #90 cap.er.24h 07/06/19 [Rx] Warfarin [Coumadin] 3 mg PO DAILY@1800 3 Days #3 tab 07/06/19 [Rx] Follow up Appointment(s)/Referral(s): Praneeth Smalls MD [STAFF PHYSICIAN] - 1 Week Marcy Farias MD [Primary Care Provider] - 1-2 days Activity/Diet/Wound Care/Special Instructions: Eliquis filled at [facility] using free 30day coupon Follow up primary probate clerk and [employer] [facility] (Eliquis accounts receivable clerk) - - regarding patient assistance program application
--- NOTE | 2019-07-06 12:16 | P.PN ---
Subjective Progress Note Date: 07/06/19 This is a pleasant 78-year-old female with history of coronary artery disease and prior stent placements, the most recent stent was apparently performed approximately 5 years ago. 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 She has history also of hyperlipidemia, hypertension. She presented to the emergency room on this occasion with symptoms of moderate to severe shortness of breath, palpitations, diarrhea and exhaustion. Her chest x- ray on presentation here did not reveal any acute changes EKG showed what appeared to be in atrial flutter with a rapid ventricular response. This could also be an atrial tachycardia. Blood pressure 155/60 with a heart rate in the 80s this morning, it appears that the patient continues to be in atrial flutter, respirations 18, temperature 98.4, 98% on room air. White blood cell count 12.2, hemoglobin 16, lately count 305. Sodium 139, potassium 4.5, chloride 108, CO2 20, BUN 17 creatinine 1.0, magnesium 2.0. Troponin 0.034, 0.044, 0.055. T SH normal at 1.1, yancey virus not detected. Dr. Smalls did have a lengthy discussion with the patient about the need for anticoagulation for stroke prevention, he discussed possible ablation. Procedure down the road, and the importance of heart rate control. The patient does think that she was tried on one of the newer anticoagulants in the past but did not have appropriate financial coverage for that. We will however check to see if she has coverage for Eliquis is so we will initiate this. If the patient does not have coverage we will anticoagulate with Coumadin. We will discontinue her aspirin, continue with her Plavix, check an echocardiogram, check a TSH level. We will put the p atient on 240 mg of Cardizem in the morning and 120 in the evening, discontinue the IV Cardizem drip in the evening. We will also decrease her lisinopril to 40 mg daily. 07/06/2019 Patient was seen and examined this morning, it appears that she continues to be in an atrial flutter with a heart rate in the 70s this morning, echocardiogram with Doppler study was performed which revealed an ejection fraction of 60-65%. Patient was sitting up in her chair at the time of my examination. She feels well, denies any difficulty in breathing or palpitations.blood pressure 148/72 this morning, heart rate in the 70s, 97% on room air. Objective - Vital Signs Vital signs: Vital Signs Temp 98.1 F 07/06/19 04:00 Pulse 83 07/06/19 08:00 Resp 16 07/06/19 08:00 BP 153/80 07/06/19 08:00 Pulse Ox 96 07/06/19 08:00 Intake & Output 07/05/19 07/06/19 07/06/19 18:59 06:59 18:59 Intake Total 608.238 780 240 Output Total 100 Balance 508.238 780 240 Weight 86.8 kg Intake: Intake, IV Titration 248.238 Amount Diltiazem 125 mg In 117.833 Sodium Chloride 0.9% 100 ml @ 5 MG/HR 5 mls/hr IV .Q24H EDGARDO Rx#:[id number] Heparin Sod,Pork in 0.45% 130.405 NaCl 25,000 unit In 0.45 % NaCl 1 250ml.bag @ 11.4 UNITS/KG/HR 9.98 mls/hr IV .Q24H EDGARDO Rx#: [id number] Oral 360 780 240 Output: Urine 100 Other: # Voids 1 1 - Exam PHYSICAL EXAMINATION: GENERAL: 78-year-old female in no acute distress at the time of my examination HEENT: Head is atraumatic, normocephalic. Pupils equal, round. Sclera anicteric. Conjunctiva are clear. Mucous membranes of the mouth are moist. Neck is supple. There is no elevated jugular venous pressure. No carotid bruit is heard. HEART EXAMINATION: Heart S1-S2 irregularly irregular , no murmur or gallop heard CHEST EXAMINATION: Lungs are clear to auscultation and precussion. No chest wall tenderness is noted on palpation or with deep breathing. ABDOMEN: Soft, nontender. Bowel sounds are heard. No organomegaly noted. EXTREMITIES: 2+ peripheral pulses with no evidence of peripheral edema and no c juanita tenderness noted. NEUROLOGIC patient is awake, alert and oriented 3 . . - Labs CBC & Chem 7: 07/06/19 05:40 07/05/19 06:38 Assessment and Plan Plan: Assessment and plan #1 atrial flutter with rapid ventricular response, could also be an atrial tachycardia. #2 coronary artery disease history with prior stent placements, exact details unavailable. Most recent stent was 5 years ago. #3 hypertension #4 hyperlipidemia Plan From cardiology's perspective, patient may be able to be discharged home today. She will get a month free Eliquis, paperwork is also been forwarded to her insurance, she will meet criteria to be covered for Eliquis. We did start the patient on Eliquis yesterday, it seemed to have been discontinued and patient was given a dose of Coumadin. She much prefers to be on Eliquis which we will change her back over today and speak with the sound physician regarding this. She also used to follow with a senior water/wastewater engineer out of town and wishes to follow now with Dr. Briscoe. We will make her a follow-up appointment in the office post discharge. DNP note has been reviewed, I agree with a documented findings and plan of care. Patient was seen and examined.
[2019-07-06] MEDS ORDERED: APIXABAN 5 MG TAB PO SCH (21:00)
== END 2019-07-06 14:04 | disposition home or self-care (01) | DRG 310 ==
LOC: EC 11:04 → 3SCARD 13:03
PROVIDERS: ADMIT Internal Medicine; ATTEND Internal Medicine
DX: I48.91 Unspecified atrial fibrillation (principal); I48.92 Unspecified atrial flutter; E78.5 Hyperlipidemia, unspecified; I10 Essential (primary) hypertension; I25.10 Atherosclerotic heart disease of native coronary artery without angina pectoris; Z20.828 Contact with and (suspected) exposure to other viral communicable diseases; Z88.6 Allergy status to analgesic agent; Z88.5 Allergy status to narcotic agent; Z88.0 Allergy status to penicillin; Z88.8 Allergy status to other drugs, medicaments and biological substances; I25.2 Old myocardial infarction; Z90.49 Acquired absence of other specified parts of digestive tract; Z98.890 Other specified postprocedural states; Z95.5 Presence of coronary angioplasty implant and graft; Z90.710 Acquired absence of both cervix and uterus; Z79.82 Long term (current) use of aspirin; Z79.02 Long term (current) use of antithrombotics/antiplatelets; Z79.899 Other long term (current) drug therapy; Z82.49 Family history of ischemic heart disease and other diseases of the circulatory system; Z83.438 Family history of other disorder of lipoprotein metabolism and other lipidemia
CPT/HCPCS: 36415; 71046; 80053; 81003; 83735; 84443; 84484; 85025; 85610; 85730; 87635; 93005; 93306; 96365; 96366; 96368; 96376; 99291

== ENCOUNTER → 2020-05-15 | Outpatient (CLI) | payer MEDICARE, BC ==
--- NOTE | 2020-05-15 16:27 | US ---
EXAMINATION TYPE: US venous doppler duplex LE LT DATE OF EXAM: 05/15/2020 4:17 PM COMPARISON: NONE CLINICAL HISTORY: M25.562 Left Knee Pain, R22.42 Swelling. Medial left knee pain at site of superfici al varicosed veins. SIDE PERFORMED: Left TECHNIQUE: The lower extremity deep venous system is examined utilizing real time linear array sonog gordon with graded compression, doppler sonography and color-flow sonography. VESSELS IMAGED: Common Femoral Vein Deep Femoral Vein Greater Saphenous Vein * Femoral Vein Popliteal Vein Small Saphenous Vein * Proximal Calf Veins (* superficial vessels) Left Leg: Negative for DVT. Negative for SVT at medial left knee where tortuous and dilated superfic ial veins at noted at patient's area of pain. Grayscale, color doppler, spectral doppler imaging performed of the deep veins of the left lower extr emity. There is normal flow, compressibility, vascular waveforms. IMPRESSION: No ultrasound evidence for acute DVT in the left lower extremity. Towards the end of true dy there is tortuous but patent superficial vessel or varicose vein noted.
--- NOTE | 2020-05-16 12:25 | XR ---
Left knee HISTORY: Pain and swelling 5 views of the left knee Bone mineralization is reduced. There is no fracture or dislocation. Suprapatellar increased density suggests small effusion, there is spurring at the patellofemoral and medial aspect of the joint with some joint space loss. Alignment is maintained. Vascular calcifications are present in the soft tissu es. There is large serpiginous soft tissue increased attenuation present along the medial thigh and l eg likely due to varicosities. IMPRESSION: Osteoarthritis. Soft tissue varicosities.
== END | disposition home or self-care (01) ==
LOC: RADUSWWP 15:44
PROVIDERS: ATTEND Family Medicine
DX: M17.12 Unilateral primary osteoarthritis, left knee (principal); I86.8 Varicose veins of other specified sites; R22.42 Localized swelling, mass and lump, left lower limb

== ENCOUNTER 2020-05-28 19:52 | Emergency (ER) | payer MEDICARE, BC ==
--- NOTE | 2020-05-28 22:59 | US ---
EXAMINATION TYPE: US venous doppler duplex LE LT DATE OF EXAM: 05/28/2020 10:52 PM COMPARISON: US CLINICAL HISTORY: posterior knee pain. Posterior knee pain x 3.5 hours. No hx of DVT. Patient is on e liquis. SIDE PERFORMED: Left TECHNIQUE: The lower extremity deep venous system is examined utilizing real time linear array sonog gordon with graded compression, doppler sonography and color-flow sonography. VESSELS IMAGED: Common Femoral Vein Deep Femoral Vein Greater Saphenous Vein * Femoral Vein Popliteal Vein Small Saphenous Vein * Proximal Calf Veins (* superficial vessels) Left Leg: No evidence of DVT in veins imaged at this time from prox calf veins to CFV/GSV. IMPRESSION: No evidence of deep vein thrombosis in the left leg.
--- NOTE | 2020-05-28 23:01 | ED ---
General Adult HPI - General Chief complaint: Extremity Problem,Nontraumatic Stated complaint: Lft leg pain Time Seen by Provider: 05/28/20 21:28 Source: patient Mode of arrival: ambulatory Limitations: no limitations - History of Present Illness Initial comments: 79-year-old female presenting today for chief complaint of left posterior knee pain patient states that she has had left posterior knee pain for over 2 weeks. She states she had an ultrasound x-ray done approximately 10 days ago which revealed no acute abnormalities. Patient denies any leg swelling redness or decreased range of motion. She states it was starting to feel relatively better however when she was standing in the kitchen she felt a pop and painful sensation behind the left knee. Patient states she has no increased pain in comparison with that of earlier in the day. Patient denies any fevers chills general malaise she has a chest pain shortness of breath, history of DVT or pulmonary embolism patient states she is on eliquis for cardiovascular reasons. Patient has no additional complaints concerns, denies injuries or falls and is ambulatory on arrival. - Related Data Home Medications Medication Instructions Recorded Confirmed Atorvastatin Calcium [Lipitor] 40 mg PO HS 07/04/19 05/28/20 Clopidogrel [Plavix] 75 mg PO HS 07/04/19 05/28/20 Enalapril Maleate [Vasotec] 10 mg PO BID 07/04/19 05/28/20 Diltiazem Cd [Cardizem CD] 360 mg PO DAILY 05/28/20 05/28/20 Metoprolol Succinate (ER) [Toprol 50 mg PO HS 05/28/20 05/28/20 Xl] Multivitamins, Thera [Multivitamin 1 tab PO DAILY@1200 05/28/20 05/28/20 (formulary)] Previous Rx's Medication Instructions Recorded Apixaban [Eliquis] 5 mg PO BID 30 Days #60 tab 07/05/19 Allergies Allergy/AdvReac Type Severity Reaction Status Date / Time ampicillin Allergy Unknown Verified 05/28/20 21:49 Childhood oxycodone [From Percocet] Allergy tremors Verified 05/28/20 21:49 Penicillins Allergy Unknown Verified 05/28/20 21:49 Childhood indomethacin [From Indocin] AdvReac Nausea Verified 05/28/20 21:49 isosorbide [From Imdur] AdvReac Nausea Verified 05/28/20 21:49 NSAIDS (Non-Steroidal AdvReac Nausea Verified 05/28/20 21:49 Anti-Inflamma omeprazole [From Prilosec] AdvReac Abdominal Verified 05/28/20 21:49 Pain ticlopidine [From Ticlid] AdvReac Nausea Verified 05/28/20 21:49 Review of Systems ROS Statement: Those systems with pertinent positive or pertinent negative responses have been documented in the HPI. ROS Other: All systems not noted in ROS Statement are negative. Past Medical History Past Medical History: Chest Pain / Angina, Hyperlipidemia, Myocardial Infarction (ND) Additional Past Medical History / Comment(s): chest pressure not p ain Last Myocardial Infarction Date:: 2013 History of Any Multi-Drug Resistant Organisms: None Reported Past Surgical History: Cholecystectomy, Heart Catheterization With Stent, Hysterectomy Additional Past Surgical History / Comment(s): cystocele, rectocele, bladder suspension, urtheral vag sling, anterior/posterior colporhaphy, rt total knee, 5 stents. Date of Last Stent Placement:: 2013 Past Psychological History: No Psychological Hx Reported Smoking Status: Never smoker Past Alcohol Use History: None Reported Past Drug Use History: None Reported - Past Family History Father Family Medical History: Congestive Heart Failure (CHF), Coronary Artery Disease (CAD), Hyperlipidemia, Myocardial Infarction (ND) Mother Family Medical History: Hypertension, Renal Disease General Exam - General Exam Comments Initial Comments: General: The patient is awake and alert, in no distress Eye: +3 mm pupils are equal, round and reactive to light, extra-ocular movem ents are intact. No nystagmus. There is normal conjunctiva bilaterally. No signs of icterus. Cardiovascular: There is a regular rate and rhythm. No murmur, rub or gallop is appreciated. Respiratory: Lungs are clear to auscultation, respirations are non-labored, breath sounds are equal. No wheezes, stridor, rales, or rhonchi. Musculoskeletal: No tenderness to palpation of the posterior fossa of the left knee. no redness, no painful veins to palpation. Normal ROM, no tenderness. Strength 5/5. Sensation intact. Radial and DP pulses equal bilaterally 2+. Neurological: A&O x 3. CN II-XII intact grossly, There are no obvious motor or sensory deficits. Coordination appears grossly intact. Speech is normal. Skin: Skin is warm and dry and no rashes or lesions are noted. No LE edema, no calf pain or swleling. Psychiatric: Cooperative, appropriate mood & affect, normal judgment. Limitations: no limitations Course Vital Signs 05/28/20 05/28/20 20:36 23:20 Temperature 98.2 F 98.0 F Pulse Rate 77 70 Respiratory 18 16 Rate Blood Pressure 201/92 150/79 O2 Sat by Pulse 93 L 97 Oximetry Medical Decision Making - Medical Decision Making US (-). Previous studies (-). suspect possible rupture bakers cyst. Patient neurovascularly intact. patient has no additional PE findings.discussed case with attending and pt was discharged appearing well. Disposition Clinical Impression: Posterior left knee pain Disposition: HOME SELF-CARE Condition: Good Instructions (If sedation given, give patient instructions): Bakers Cyst (ED) Additional Instructions: Please use medication as discussed. Please follow-up with family doctor in the next 2 days Please return to emergency room if the symptoms increase or worsen or for any other concerns. Is patient prescribed a controlled substance at d/c from ED?: No Referrals: Marcy Farias MD [Primary Care Provider] - 1-2 days Time of Disposition: 23:01
[2020-05-28 23:28] VITALS: BP 150/79; PULSE 70; RESP 16; TEMP 98
== END 2020-05-28 23:20 | disposition home or self-care (01) ==
LOC: EC 19:52
DX: M25.562 Pain in left knee (principal); E78.5 Hyperlipidemia, unspecified; I25.2 Old myocardial infarction
CPT/HCPCS: 99283